=== PATIENT | female | born 2000 | race Caucasian/White ===

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

== ENCOUNTER 2018-01-28 12:45 | Emergency (ER) | payer OTHER ==
[2018-01-28] MEDS: HYDROCODONE/APAP (5/325) TAB PO (13:33)
[2018-01-28 14:22] LABS: URINE BLOOD (Dip) POC Negative (NEGATIVE); URINE GLUCOSE (Dip) POC Negative (NEGATIVE); URINE KETONES (Dip) POC Negative (NEGATIVE); URINE LEUKOCYTE EST (Dip) POC Trace (NEGATIVE); URINE NITRITE (Dip) POC Negative (NEGATIVE); URINE TOTAL PROTEIN POC Trace (NEGATIVE)
== END 2018-01-28 15:34 | disposition home or self-care (01) ==
LOC: FTE 12:45
DX: S39.92XA Unspecified injury of lower back, initial encounter (principal); W01.0XXA Fall on same level from slipping, tripping and stumbling without subsequent striking against object, initial encounter; Y92.89 Other specified places as the place of occurrence of the external cause
CPT/HCPCS: 72072; 72100; 72220; 81003; 81025; 99283-25

== ENCOUNTER 2018-05-29 17:08 | Emergency (ER) | payer OTHER | END 2018-05-29 18:34 | disposition home or self-care (01) | LOC: FTE 17:08 | DX: H66.93 Otitis media, unspecified, bilateral (principal) | CPT/HCPCS: 99283; Z7502 ==

== ENCOUNTER 2018-08-04 13:27 | Emergency (ER) | payer OTHER ==
[2018-08-04] MEDS: FAMOTIDINE 20 MG INJ IV (15:59)
[2018-08-04] MEDS: ACETAMINOPHEN 325 MG TAB PO (15:59)
[2018-08-04] MEDS: SOD CHLORIDE 0.9% 500 ML IV (15:59)
[2018-08-04] MEDS: ONDANSETRON 4 MG INJ IV (15:59)
[2018-08-04 16:01] LABS: ADD MAN DIFF? NO
[2018-08-04 16:02] LABS: WHITE BLOOD COUNT 15.8 10^3/ul (4.8-10.8)
[2018-08-04 16:02] LABS: BASOPHILS % 0.1 % (0.0-2.0); HEMOGLOBIN 15.2 g/dl (12.0-16.0); LYMPHOCYTES # 0.9 10^3/ul (0.8-2.9); MEAN CORPUSCULAR HEMOGLOBIN 28.1 pg (29.0-33.0); MEAN PLATELET VOLUME 9.1 fl (7.4-10.4); MONOCYTE # 0.3 10^3/ul (0.3-0.9); MONOCYTES % 1.7 % (0.0-13.0); NEUTROPHIL # 14.5 10^3/ul (1.6-7.5); NEUTROPHILS % 91.8 % (30.0-74.0); PLATELET COUNT 335 10^3/UL (140-415); RED BLOOD COUNT 5.41 10^6/ul (4.20-5.40); RED CELL DISTRIBUTION WIDTH 12.9 % (11.5-14.5)
[2018-08-04 16:26] LABS: ALANINE AMINOTRANSFERASE 11 IU/L (13-69); ALBUMIN 5.2 g/dl (3.3-4.9); ALBUMIN/GLOBULIN RATIO 1.23; ALKALINE PHOSPHATASE 63 IU/L (42-121); ANION GAP 18 (5-13); ASPARTATE AMINO TRANSFERASE 21 IU/L (15-46); BILIRUBIN,INDIRECT 0.2 mg/dl (0-1.1); BILIRUBIN,TOTAL 0.2 mg/dl (0.2-1.3); BLOOD UREA NITROGEN 15 mg/dl (7-20); CALCIUM 9.9 mg/dl (8.4-10.2); CARBON DIOXIDE 23 mmol/L (21-31); CHLORIDE 101 mmol/L (97-110); CREATININE 0.54 mg/dl (0.44-1.00); Estimated GFR > 60 mL/min (>60); GLUCOSE 107 mg/dl (70-220); LIPASE 46 U/L (23-300); POTASSIUM 4.5 mmol/L (3.5-5.1); SODIUM 142 mmol/L (135-144); TOTAL PROTEIN 9.4 g/dl (6.1-8.1)
[2018-08-04 17:12] LABS: ADD UMIC YES; UR ASCORBIC ACID NEGATIVE (NEGATIVE); UR BACTERIA FEW /HPF (NONE SEEN); UR BILIRUBIN (Dip) NEGATIVE (NEGATIVE); UR BLOOD (Dip) 1+ mg/dL (NEGATIVE); UR CLARITY CLOUDY (CLEAR); UR COLOR YELLOW (YELLOW); UR GLUCOSE (Dip) NEGATIVE (NEGATIVE); UR KETONES (Dip) TRACE mg/dL (NEGATIVE); UR LEUKOCYTE ESTERASE (Dip) TRACE Leu/ul (NEGATIVE); UR MUCUS FEW /HPF (NONE SEEN); UR NITRITE (Dip) NEGATIVE (NEGATIVE); UR RBC 0 /HPF (0-5); UR SPECIFIC GRAVITY (Dip) 1.023 (1.003-1.030); UR SQUAMOUS EPITHELIAL CELL FEW /HPF (FEW); UR TOTAL PROTEIN (Dip) NEGATIVE (NEGATIVE); UR UROBILINOGEN (Dip) NEGATIVE (NEGATIVE); UR WBC 5 /HPF (0-5)
== END 2018-08-04 17:44 | disposition home or self-care (01) ==
LOC: FTE 13:27
DX: R10.13 Epigastric pain (principal); R11.10 Vomiting, unspecified; R19.7 Diarrhea, unspecified
CPT/HCPCS: 36415; 76705; 80053; 81001; 83690; 84703; 85025; 96374; 96375; 99285-25

== ENCOUNTER 2018-11-23 16:27 | Emergency (ER) | payer OTHER | END 2018-11-24 13:15 | disposition home or self-care (01) | LOC: E/R 11-24 13:15 | DX: J06.9 Acute upper respiratory infection, unspecified (principal) | CPT/HCPCS: 99283; Z7502 ==